=== PATIENT | female | born 1960 | race Caucasian/White ===

== ENCOUNTER 2017-08-16 17:33 | Emergency (ER) | payer OTHER ==
[~2017-08-16] VITALS: Ht 160 cm; Wt 90.7 kg
[2017-08-16 17:40] VITALS: BP 152/96
== END 2017-08-16 18:17 | disposition left against medical advice (07) ==
LOC: EDBD 17:33 → ER 17:33
DX: R04.0 Epistaxis (principal); Z53.21 Procedure and treatment not carried out due to patient leaving prior to being seen by health care provider

== ENCOUNTER 2019-04-17 04:00 | Emergency (ER) | payer OTHER ==
[~2019-04-17] VITALS: Ht 160 cm; Wt 88.5 kg
[2019-04-17] MEDS ORDERED: ACETAMINOPHEN 325 MG TAB PO ONE (04:15)
[2019-04-17] MEDS ORDERED: ALBUTEROL SULF 2.5 MG/0.5ML(0.5%) NEB SOLN NEB ONE (05:00)
[2019-04-17] MEDS ORDERED: methylPREDNISolone SOD SUCC 125 MG/2 ML VL IV ONE (05:00)
[2019-04-17] MEDS ORDERED: IPRATROPIUM BROM 0.5 MG/2.5ML INH SOL NEB ONE (05:15)
[2019-04-17] MEDS ORDERED: methylPREDNISolone SOD SUCC 125 MG/2 ML VL ONE (05:21)
[2019-04-17] MEDS ORDERED: IPRATROPIUM BROM 0.5 MG/2.5ML INH SOL ONE (05:35)
[2019-04-17] MEDS ORDERED: ALBUTEROL SULF 2.5 MG/0.5ML(0.5%) NEB SOLN ONE (05:35)
[2019-04-17 06:47] LABS: Basophils # (auto) 0 uL; Eosinophils # (auto) 0 uL; Mean Corpuscular Hemoglobin 34.6 pg (28.0-32.0); Monocytes # (auto) 0.6 uL; Monocytes % (auto) 8.2 % (0.0-12.0); Nucleated Red Blood Cells % 0.1 %
[2019-04-17 06:50] LABS: Basophils % (auto) 0.5 % (0.0-2.0); Eosinophils % (auto) 0.5 % (0.0-7.0); Hematocrit 42.6 % (36.0-46.0); Lymphocytes % (auto) 15.4 % (10.0-50.0); Mean Corpuscular Hgb Conc. 35.2 g/dL (32.0-36.0); Mean Corpuscular Volume 98.5 fL (80.0-100.0); Neutrophils # (auto) 5.1 uL; Neutrophils % (auto) 75.4 % (37.0-80.0); Platelet Count (auto) 191 10^3/uL (140-450); Red Blood Cells 4.32 10^6/uL (4.0-5.20); White Blood Cell 6.8 10^3/uL (4.4-10.8)
[2019-04-17 07:02] LABS: INR 1.04 (0.9-1.15); Partial Thromboplastin Time 29.8 sec (23.64-32.05)
[2019-04-17 07:06] LABS: Anion Gap 7 (5-15); Blood Urea Nitrogen 8 mg/dL (7-18); Calcium 8.9 mg/dL (8.5-10.1); Carbon Dioxide 23 mmol/L (21-32); Chloride 107 mmol/L (98-107); Glucose 147 mg/dL (74-106); Magnesium 2.2 mg/dL (1.6-2.6); Potassium 3.5 mmol/L (3.5-5.1); Sodium 137 mmol/L (136-145)
[2019-04-17 07:14] LABS: Alanine Aminotransferase 47 U/L (13-56); Alkaline Phosphatase 117 U/L (45-117); Aspartate Aminotransferase 47 U/L (15-37); BUN/Creatinine Ratio 10.4; Bilirubin, Total 0.4 mg/dL (0.2-1.0); GFR African American 99 mL/min; GFR Non-African American 82 mL/min
[2019-04-17] MEDS ORDERED: KETOROLAC TROMETH 15 mg/ml 1ML VL IV ONE (07:45)
[2019-04-17] MEDS ORDERED: KETOROLAC TROMETH 60MG/2ML VIAL ONE (07:49)
[2019-04-17 10:19] LABS: Urine WBC None Seen /hpf (0 - 5)
[2019-04-17 10:49] LABS: Urine Bacteria NONE SEEN /hpf (None Seen); Urine Blood 1+ /uL (Negative); Urine Mucus FEW (None Seen); Urine Specific Gravity 1.036 (1.001-1.035)
[2019-04-17 11:29] VITALS: BP 112/62
[2019-04-17] MEDS ORDERED: HYDROcodone-ACET 5/325MG TAB ONE (12:37)
[2019-04-17] MEDS ORDERED: HYDROcodone-ACET 5/325MG TAB PO ONE (12:45)
== END 2019-04-17 12:47 | disposition home or self-care (01) ==
LOC: ER 04:05
DX: J20.9 Acute bronchitis, unspecified (principal); J01.00 Acute maxillary sinusitis, unspecified
CPT/HCPCS: 36415; 70450; 71045; 80053; 81001; 83735; 83880; 84484; 85025; 85610; 85730; 87804; 93005; 94640; 96374; 96375; 99285; J1885; J2930; J7644